=== PATIENT | male | born 1970 | race Caucasian/White ===

== ENCOUNTER 2020-01-25 18:23 | Emergency (ER) | payer OTHER ==
--- NOTE | 2020-01-25 19:28 | EDM.PDOC ---
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 There is a minor laceration of the R forearm. His tetanus vax status is current. - Related Data Allergies Allergy/AdvReac Type Severity Reaction Status Date / Time No Known Allergies Allergy Verified 01/25/20 19:26 Home Meds: Home Meds NK [No Known Home Meds] 10/05/14 [History] ED ROS GENERAL - Review of Systems Review Of Systems: Comprehensive ROS is negative, except as noted in HPI. ED EXAM, SKIN/RASH Exam: See Below Exam Limited By: No Limitations General Appearance: Alert, WD/WN, No Apparent Distress Head: Normocephalic Neck: Normal Inspection Respiratory/Chest: Lungs Clear Cardiovascular: Regular Rate, Rhythm Back Exam: Normal Inspection Extremities: Normal Range of Motion, Other (1.2 cm laceration to R distal forearm, no active bleeding) Neurological: Alert, Oriented, CN II-XII Intact, Normal Cognition, Normal Gait, No Motor/Sensory Deficits Psychiatric: Normal Affect, Normal Mood Skin: Warm, Dry, Normal Color, No Rash, Wound/Incision (1.2 cm laceration R forearm) ED SKIN PROCEDURES - Laceration/Wound Repair Right Anterior Distal Other Appearance: Subcutaneous, Clean Distal NVT: Neuro & Vascular Intact, No Tendon Injury Anesthetic Type: Local Local Anesthesia - Lidocaine (Xylocaine): 1% Plain Local Anesthetic Volume: 2cc Skin Prep: Chlorhexidine (Hibiciens) Exploration/Debridement/Repair: Wound Explored, No Foreign Material Found Closed with: Sutures Lac/Wound length In cm: 1.2 Suture Size: 4-0 # of Sutures: 4 Suture Type: Nylon, Interrupted Drain Placement: No Sterile Dressing Applied: Nurse Tetanus Status Addressed: Yes Complications: No Course - Vital Signs Text/Narrative:: patient tolerated procedure well. Departure - Departure Time of Disposition: 19:30 Disposition: Home, Self-Care 01 Condition: Good Clinical Impression: Laceration of right forearm without complication Qualifiers: Encounter type: initial encounter Qualified Code(s): S51.811A - Laceration without foreign body of right forearm, initial encounter - Discharge Information *PRESCRIPTION DRUG MONITORING PROGRAM REVIEWED*: Not Applicable *COPY OF PRESCRIPTION DRUG MONITORING REPORT IN PATIENT SHEILA: Not Applicable Referrals: Tracy Hernandez PA [Primary Care Provider] - - Problem List & Annotations (1) Laceration of right forearm without complication SNOMED Code(s): 273044445 Code(s): S51.811A - LACERATION W/O FOREIGN BODY OF RIGHT FOREARM, INIT ENCNTR Status: Acute Current Visit: Yes Annotation/Comment:: Routine wound cares, SR in 9-10 days Qualifiers: Encounter type: initial encounter Qualified Code(s): S51.811A - Laceration without foreign body of right forearm, initial encounter - Problem List Review Problem List Initiated/Reviewed/Updated: Yes - Assessment/Plan Plan: Follow up with PCP in 9-10 days for SR.
[2020-01-25 19:52] VITALS: BP 138/104; PULSE 97
== END 2020-01-25 19:26 | disposition home or self-care (01) ==
LOC: FB.ED 18:23
DX: S51.811A Laceration without foreign body of right forearm, initial encounter (principal); W26.9XXA Contact with unspecified sharp object(s), initial encounter
CPT/HCPCS: 12001; 99282; J2001

== ENCOUNTER 2023-05-14 19:25 | Emergency (ER) | payer OTHER ==
[2023-05-14] MEDS ORDERED: Lidocaine 2% 20 ML MDV INFILT ONE (19:26)
[2023-05-14] MEDS ORDERED: Acetaminophen/HYDROcodone 325-5 MG Tab PO ONE (19:26)
[2023-05-14 20:10] VITALS: PULSE 99
[2023-05-14] MEDS ORDERED: Cephalexin 500 MG Cap PO ONE (22:05)
[2023-05-15 01:54] VITALS: BP 232/129
== END 2023-05-14 22:41 | disposition home or self-care (01) ==
LOC: FB.ED 19:25
DX: S67.02XA Crushing injury of left thumb, initial encounter (principal); S68.522A Partial traumatic transphalangeal amputation of left thumb, initial encounter; Z87.891 Personal history of nicotine dependence; W23.0XXA Caught, crushed, jammed, or pinched between moving objects, initial encounter
CPT/HCPCS: 73140-FA; 99283; A9270-GY